=== PATIENT | male | born 1950 | race Caucasian/White ===

== ENCOUNTER → 2019-03-18 | Outpatient (CLI) | payer MEDICARE, OTHER ==
[2019-03-18 12:21] LABS: Appearance,Urine Clear (Clear); Bilirubin,Urine Negative (Negative); Blood,Urine Negative (Negative); Color,Urine Yellow; Glucose,Urine (UA) Negative (Negative); Ketones,Urine Negative (Negative); Leukocyte Esterase,Urine Negative (Negative); Nitrite,Urine Negative (Negative); Protein,Urine Trace (Negative); Specific Gravity,Urine 1.027 (1.001-1.035); Urobilinogen,Urine <2.0 mg/dL (<2.0)
[2019-03-18 12:23] LABS: HGB 16.2 gm/dL (13.0-17.5); MCH 32.8 pg (25.0-35.0); MCHC 33.8 g/dL (31.0-37.0); Mean Platelet Volume 6.3; Platelet Count 135 k/uL (150-450); RBC 4.95 m/uL (4.30-5.90); RDW 13.2 % (11.5-15.5); WBC 3.9 k/uL (3.8-10.6)
[2019-03-18 12:30] LABS: Potassium 4.6 mmol/L (3.5-5.1)
[2019-03-18 12:31] LABS: Albumin 4.5 g/dL (3.5-5.0); Calcium 9.8 mg/dL (8.4-10.2); Total Bilirubin 0.7 mg/dL (0.2-1.3); Total Protein 7.5 g/dL (6.3-8.2)
[2019-03-18 12:34] LABS: INR 1.2 (<1.2); Prothrombin Time 12.1 sec (9.0-12.0)
[2019-03-18 12:35] LABS: Partial Thromboplastin Time 31.6 sec (22.0-30.0)
== END | disposition home or self-care (01) ==
LOC: LABPAT 11:22
PROVIDERS: ATTEND Orthopaedic Surgery
DX: Z01.812 Encounter for preprocedural laboratory examination (principal); M16.11 Unilateral primary osteoarthritis, right hip; Z79.01 Long term (current) use of anticoagulants
CPT/HCPCS: 36415; 80053; 81003; 85027; 85610; 85730; 87070

== ENCOUNTER 2019-03-24 05:41 | Inpatient (IN) | payer MEDICARE, OTHER ==
[2019-03-20 11:42] VITALS: BMI 36.1
[~2019-03-24 05:41] MED LIST: ACETAMINOPHEN TAB 500 MG TAB PO ONE; GABAPENTIN 300 MG CAP PO ONE; MELOXICAM 7.5 MG TAB PO ONE; TRANEXAMIC ACID 1,000 MG in SODIUM CHLORIDE 0.9% 100 ML IVPB ONE; ceFAZolin 3 GM in SODIUM CHLORIDE 0.9% 100 ML IVPB ONE
[2019-03-24] MEDS ORDERED: LIDOCAINE 1% 20 ML VIAL (10MG/ML) FOR IV START INTRADERMA ONE (06:25)
[2019-03-24] MEDS ORDERED: ONDANSETRON 4 MG/2 ML VIAL IVP ONE (06:30)
[2019-03-24] MEDS ORDERED: DEXAMETHASONE SOD PHOSPHATE 10 MG/ML 1 ML VIAL IV ONE ×2 (06:30→07:16)
[2019-03-24] MEDS ORDERED: LACTATED RINGERS 1,000 ML IV ONE ×2 (06:31→07:59)
[2019-03-24] MEDS ORDERED: LACTATED RINGERS 1,000 ML BAG IV ONE (06:57)
[2019-03-24] MEDS ORDERED: fentaNYL (PF) 50 MCG/ML 2 ML AMP ONE (06:57)
[2019-03-24] MEDS ORDERED: MIDAZOLAM 2 MG/2 ML VIAL ONE (06:57)
[2019-03-24] MEDS ORDERED: SODIUM CHLORIDE 0.9% 100 ML BAG ONE (06:57)
[2019-03-24] MEDS ORDERED: TRANEXAMIC ACID 1,000 MG/10 ML VIAL ONE (06:57)
[2019-03-24] MEDS ORDERED: ceFAZolin 3,000 MG in SODIUM CHLORIDE 0.9% IRRIGATIO 3,000 ML IRRIGATION ONE (07:00)
[2019-03-24] MEDS ORDERED: ONDANSETRON 4 MG/2 ML VIAL IVP PRN (07:01)
[2019-03-24] MEDS ORDERED: DIAZEPAM 5 MG TAB PO PRN (07:01)
[2019-03-24] MEDS ORDERED: MAGNESIUM HYDROXIDE 2,400 MG/10 ML CUP PO PRN (07:01)
[2019-03-24] MEDS ORDERED: HYDROcodone/APAP 5-325MG 1 EACH TAB PO PRN (07:01)
[2019-03-24] MEDS ORDERED: HYDROmorphone 0.5 MG/0.5 ML SYRINGE IVP PRN ×4 (07:01→07:16)
[2019-03-24] MEDS ORDERED: NALOXONE 0.4 MG/ML 1 ML VIAL IV PRN (07:01)
[2019-03-24] MEDS ORDERED: hydrOXYzine PAMOATE 25 MG CAP PO PRN (07:01)
[2019-03-24] MEDS ORDERED: LIDOCAINE 1% 20 ML VIAL (10MG/ML) FOR IV START INTRADERMA PRN (07:16)
[2019-03-24] MEDS: ROPIVACAINE 246.25 MG, EPINEPHrine 0.5 MG, KETOROLAC 30 MG, cloNIDine HCL/PF 80 MCG, WA... MISCELLANE ONE ×10 (07:24→08:24)
--- NOTE | 2019-03-24 08:44 | P.OP ---
Date of Procedure: 03/24/19 Preoperative Diagnosis: Severe osteoarthritis right hip Postoperative Diagnosis: Severe osteoarthritis right hip Procedure(s) Performed: Right total hip arthroplasty with a direct anterior approach Implants: Wray [employer] nephew Polarstem size 1 standard [employer]hew R3, 3 hole acetabular shell, 56 mm [employer]hew reflection 6.5 mm cancellus screw, 20 mm 2 [employer] R3, XLPE 20 acetabular liner [employer]hew Oxinium femoral head 36 m, +4 All components were press-fit. The articulation is Oxinium on polyethylene. Anesthesia: spinal Surgeon: Agustín Gomes [employer] Sales Representative #1: Danielle Cristobal Estimated Blood Loss (ml): 120 (64 mL returned with Cell Saver) Pathology: other (Femoral head) Condition: stable Disposition: PACU Indications for Procedure: After failure of conservative treatment we discussed the surgical and nonsurgical treatment options at length. Patient wishes to proceed with a total hip arthroplasty with a direct anterior approach. Complications specific to this procedure were discussed at length, including but not limited to infection, leg length discrepancy, dislocation, and nerve injury. Patient is aware of all these complications and informed consent was obtained Operative Findings: The operative findings are consistent with severe osteoarthritis of the right hip Description of Procedure: Patient was seen and evaluated in the preoperative area, consent was reviewed, and the surgical site was marked with a skin marker. Patient was then brought to the operating room and given prophylactic antibiotics intravenously. 1 g of Tranexamic acid was also given. A spinal anesthetic was administered by the anesthesia department. The patient was then placed on the Suffern table with the bony prominences well-padded. The hip area was then prepped and draped in usual sterile fashion. A universal timeout was then performed, which confirmed the patient's name, surgical site, ALLERGIES, and procedure being performed. Next the incision site was located at 1 cm distal and 1 cm lateral to the anterior superior iliac spine. The skin and subcutaneous tissues were sharply incised. Incision was carefully dissected down to the fascia overlying the tensor fascia sony muscle. This fascia was then incised in line with the incision. Next, using blunt finger dissection, the tensor fascia sony muscle was dissected off its investing fascia. The muscle was then carefully retracted laterally with a cobra retractor over the lateral neck of the femur. Next, the circumflex vessels were identified and cauterized using the AquaMantis device. The anterior hip capsule was then exposed. The capsule was then opened and an inverted T fashion. Cobra retractors were then placed intracapsularly. The proximal femur was then visualized. The femoral neck was then osteotomized appropriate level above the lesser trochanter. Small amount of traction was placed with the Suffern table. A small wedge of bone was then removed from the remaining femoral head. Next, using a corkscrew femoral head was easily removed from the acetabulum. On gross visual inspection, the femoral head had complete loss of articular cartilage in mu ltiple periarticular osteophytes. Attention was then turned to the acetabulum. the acetabulum was exposed and any remaining labrum was excised. Sequential reaming of the acetabulum was performed using fluoroscopic guidance. When the appropriate size was reached, a trial was then placed. The position and fit of the trial was checked with fluoroscopy. The trial was then removed. Then, using fluoroscopic guidance, the final implant was impacted at 20 of anteversion and 40 of abduction, and fully seated in the acetabulum. 2 screws were then placed in the acetabulum. Again fluoroscopy was used to check position of the screws. Next, the liner was then impacted, with a 20 elevated liner located in the anterior superior quadrant. Component locking was confirmed. Attention was then directed to the femur. With the aid of the Suffern table, the femur was externally rotated to approximately 130, extended, and abducted under the opposite leg. A side hook was then placed under the proximal femur, and the side hook elevator was used to elevate the proximal femur. Retractors were then placed. A capsular release was performed, as well as a release of the conjoined tendon, which afforded excellent visualization of the proximal femur. Next, a box osteotome was used to lateralize the proximal femur. A shearing shed hand was then used to locate the femoral canal. Sequential broaching was then performed with appropriate size which afforded excellent fixation in the proximal femur. A trial was then placed with appropriate head and neck, and the hip was gently reduced with the aid of the Suffern table. Fluoroscopy was then used to check position of the components, as well as to ensure equal leg lengths. The hip was then gently dislocated and the trials were then removed. Final implants were then impacted and the hip was again reduced. Final fluoroscopic x-rays confirmed that the components were in anatomic position, as well as equal leg lengths. The hip was also taken through range of motion, and found to be stable. The hip was then copiously irrigated with antibiotic solution with pulsatile lavage. The hip was then irrigated with Irrisept solution. The soft tissues were then injected with a ropivacaine solution, which consisted of 246.25 mg of ropivacaine, 0.5 mg of epinephrine, 30 mg of Toradol, 80 g of clonidine, and 48.45 mL of sterile water, for a total of 100 mL of fluid injected. A second dose of 1 g of Tranexamic acid was also given. the fascia was then closed with 2-0 strata fix suture. The subcutaneous tissue was closed with 3-0 Vicryl. The subcuticular tissue was closed with 3-0 strata fix suture. The skin was then closed with Dermabond glue and a sterile silver dressing. The patient was then transferred to the recovery room in stable co ndition. The residential assistant SKYE Osborn was required due to the complexity of surgery, and the need for skilled nursing surgical services director for positioning, draping, exposure, retraction, and closure of the wound.
--- NOTE | 2019-03-24 09:21 | XR ---
Limited right hip HISTORY: Status post right hip arthroplasty Single frontal view of the right hip submitted. Patient is status post right hip arthroplasty. There is anatomic alignment. Subcutaneous emphysema is noted. Small ossific density lateral to the acetabulum is likely postoperative. IMPRESSION: Orthopedic follow-up.
--- NOTE | 2019-03-24 09:27 | FL ---
Fluoroscopy HISTORY: Anterior hip replacement 60 seconds fluoroscopy time supplied to the referring clinician. 3 intraoperative C-arm images docum ent the procedure. See dictated report from orthopedic surgery.
--- NOTE | 2019-03-24 09:29 | XR ---
Limited right hip HISTORY: Anterior hip replacement 3 intraoperative C-arm images document the procedure.
[2019-03-24] MEDS: LACTATED RINGERS 1,000 ML IV SCH (13:49)
[2019-03-24] MEDS: HYDROcodone/APAP 5-325MG 1 EACH TAB PO PRN (15:55)
--- NOTE | 2019-03-24 15:59 | P.CONS ---
History of Present Illness - Reason for Consult Preoperative outpatient management, history of PE - History of Present Illness Patient is a pleasant 68-year-old gentleman is admitted for total right arthroplasty direct anterior approach. Patient takes 20 mg of Xarelto, presently on 10 mg which will be switched to 20 mg patient had history of DVT twice in the past. Patient is high risk for another DVT. Patient denied any fever chills nausea vomiting patient had pass gas did not move his bowels. Pain is well controlled. Patient doesn't have full he catheter. Patient is clinically doing well Review of Systems REVIEW OF SYSTEMS: CONSTITUTIONAL: No fever, no malaise, no fatigue. HEENT: No recent visual problems or hearing problems. Denied any sore throat. CARDIOVASCULAR: No chest pain, orthopnea, PND, no palpitations, no syncope. PULMONARY: No shortness of breath, no cough, no hemoptysis. GASTROINTESTINAL: No diarrhea, no nausea, no vomiting, no abdominal pain. NEUROLOGICAL: No headaches, no weakness, no numbness. HEMATOLOGICAL: Denies any bleeding or petechiae. GENITOURINARY: Denies any burning micturition, frequency, or urgency. MUSCULOSKELETAL/RHEUMATOLOGICAL: Denies any joint pain, swelling, or any muscle pain. ENDOCRINE: Denies any polyuria or polydipsia. The rest of the 14-point review of systems is negative. Past Medical History Past Medical History: Blood Disorder, Cancer, Deep Vein Thrombosis (DVT), Osteoarthritis (OA), Prostate Disorder Additional Past Medical History / Comment(s): PROSTATE CA 2008, w/ surg; then radiation tx 2014. Factor V blood disorder, DVT x2. History of Any Multi-Drug Resistant Organisms: None Reported Past Surgical History: Appendectomy, Joint Replacement, Prostate Surgery Additional Past Surgical History / Comment(s): LT GREAT TOE. Total Lt Hip 2016. Past Anesthesia/Blood Transfusion Reactions: No Reported Reaction Past Psychological History: No Psychological Hx Reported Smoking Status: Never smoker Past Alcohol Use History: Occasional Past Drug Use History: None Reported - Past Family History Mother Family Medical History: Cancer Father Family Medical History: Deep Vein Thrombosis (DVT) Brother(s) Additional Family Medical History / Comment(s): "blood clots" - unsure where Medications and Allergies Home Medications Medication Instructions Recorded Confirmed Type Oxybutynin Chloride [Ditropan XL] 10 mg PO HS 03/26/17 03/24/19 History Rivaroxaban [Xarelto] 20 mg PO DAILY 03/20/19 03/24/19 History Allergies Allergy/AdvReac Type Severity Reaction Status Date / Time No Known Allergies Allergy Verified 03/24/19 06:06 Physical Exam Vitals: Vital Signs Temp Pulse Pulse Resp BP BP Pulse Ox 03/24/19 13:45 68 120/78 03/24/19 13:30 70 121/76 03/24/19 13:15 67 117/75 03/24/19 13:00 71 128/82 03/24/19 12:45 80 139/85 03/24/19 12:30 64 126/82 03/24/19 12:15 61 123/81 03/24/19 12:00 66 124/84 03/24/19 11:45 97.8 F 65 12 136/77 94 L 03/24/19 11:00 66 16 112/69 95 03/24/19 10:30 63 16 119/73 96 03/24/19 10:00 64 16 130/80 96 03/24/19 09:37 62 16 111/71 95 03/24/19 09:22 65 16 107/69 95 03/24/19 09:07 62 16 104/67 95 03/24/19 08:52 97.0 F L 69 14 106/72 93 L 03/24/19 06:09 97.3 F L 63 18 154/87 94 L Intake and Output 03/24/19 03/24/19 03/24/19 06:59 14:59 22:59 Intake Total 100 1501 Output Total 120 Balance 100 1381 Intake: IV 100 1501 Output: Estimated Blood Loss 120 Other: Weight 128 kg 128 kg PHYSICAL EXAMINATION: GENERAL: The patient is alert and oriented x3, not in any acute distress. Well developed, well nourished. HEENT: Pupils are round and equally reacting to light. EOMI. No scleral icterus. No conjunctival pallor. Normocephalic, atraumatic. No pharyngeal erythema. No thyromegaly. CARDIOVASCULAR: S1 and S2 present. No murmurs, rubs, or gallops. PULMONARY: Chest is clear to auscultation, no wheezing or crackles. ABDOMEN: Soft, nontender, nondistended, normoactive bowel sounds. No palpable organomegaly. MUSCULOSKELETAL: Deferred to orthopedic surgery EXTREMITIES: No cyanosis, clubbing, or pedal edema. NEUROLOGICAL: Gross neurological examination did not reveal any focal deficits. SKIN: No rashes. Assessment and Plan Plan: -Right hip arthroplasty diuretic effect anterior approach: Continue with present pain medications. Due to prophylaxis as mentioned above -History of DVT in the past because of which I'm increasing the dose of xarelto to his home dose Urinary incontinence for which patient is on oxybutynin which will continued
[2019-03-24] MEDS: SODIUM CHLORIDE 0.9% 1,000 ML IV SCH (16:05)
[2019-03-24 20:42] VITALS: RESP 16
[2019-03-24] MEDS ORDERED: SENNOSIDES-DOCUSATE SODIUM 1 EACH TAB PO SCH (21:00)
[2019-03-24] MEDS ORDERED: OXYBUTYNIN 10 MG TAB.ER.24 PO SCH (21:00)
[2019-03-25] MEDS: SODIUM CHLORIDE 0.9% 1,000 ML IV SCH (00:03)
[2019-03-25] MEDS: HYDROcodone/APAP 5-325MG 1 EACH TAB PO PRN ×3 (01:10→11:51)
[2019-03-25] MEDS: LACTATED RINGERS 1,000 ML IV SCH (03:04)
[2019-03-25 07:19] VITALS: BP 126/85; PULSE 61; TEMP 97.8
[2019-03-25 07:20] LABS: Basophils % (A) 0 %; Eosinophils # (A) 0.1 k/uL (0-0.7); Eosinophils % (A) 1 %; HCT 38.8 % (39.0-53.0); HGB 13.4 gm/dL (13.0-17.5); Lymphocytes # (A) 0.8 k/uL (1.0-4.8); Lymphocytes % (A) 10 %; MCH 33.3 pg (25.0-35.0); MCHC 34.6 g/dL (31.0-37.0); MCV 96.4 fL (80.0-100.0); Mean Platelet Volume 7.5; Monocytes # (A) 0.4 k/uL (0-1.0); Monocytes % (A) 5 %; Neutrophils # (A) 6.4 k/uL (1.3-7.7); Neutrophils % (A) 84 %; Platelet Count 120 k/uL (150-450); RBC 4.02 m/uL (4.30-5.90); RDW 13.2 % (11.5-15.5); WBC 7.6 k/uL (3.8-10.6)
--- NOTE | 2019-03-25 08:42 | P.DS ---
Providers Date of admission: 03/24/19 05:41 Expected date of discharge: 03/25/19 Attending physician: Agustín Gomes Consults: 03/24/19 07:01 Consult Physician Routine Consulting Provider: Benjamin Babin Consult Reason/Comments: medical management and anticoagulation. Factor V Leiden. Do you want consulting provider notified?: Yes Primary care physician: Keegan Naranjo - Discharge Diagnosis(es) (1) Osteoarthritis of right hip Current Visit: Yes Status: Acute (2) S/P total hip arthroplasty Current Visit: No Status: Acute Hospital Course: This is a 68-year-old male with known history of degenerative arthritis of the right hip. The patient presents for evaluation. After discussion and consideration patient elects to proceed with total hip arthroplasty. The patient is seen preoperatively by Dr. Gomes and medically cleared for surgery by their primary care physician. Patient is admitted to [facility] on 03/24/2019 for total hip arthroplasty. The procedures performed without complication or sequelae. The patient is doing well postoperatively. Labs and vital signs are stable on day of discharge. On day of discharge patient's hip incision is healing well. There is minimal erythema. There is no drainage noted at this time. There is minimal soft tissue swelling to the hip and thigh. Patient has full foot and ankle motion without difficulty or pain. Calf is soft and nontender to palpation. Neurovascular status to the right lower extremity is intact. Patient is discharged home in good condition. Opioid start talking form is reviewed and signed at patient bedside. Patient takes Xarelto routinely and has a prescription for this at home. Patient will continue Xarelto postoperatively for anticoagulation. Please see med rec for accurate list of home medications. Plan - Discharge Summary Discharge Rx Participant: Yes New Discharge Prescriptions: New HYDROcodone/APAP 5-325MG [Tempe 5-325] 1 - 2 tab PO Q6HR PRN #56 tab PRN Reason: Pain Sennosides [Senokot] 2 tab PO DAILY PRN #60 tablet PRN Reason: Constipation No Action Oxybutynin Chloride [Ditropan XL] 10 mg PO HS Rivaroxaban [Xarelto] 20 mg PO DAILY Discharge Medication List Oxybutynin Chloride [Ditropan XL] 10 mg PO HS 03/26/17 [History] Rivaroxaban [Xarelto] 20 mg PO DAILY 12/06/19 [History] HYDROcodone/APAP 5-325MG [[place]pe 5-325] 1 - 2 tab PO Q6HR PRN #56 tab 03/25/19 [Rx] Sennosides [Senokot] 2 tab PO DAILY PRN #60 tablet 03/25/19 [Rx] Follow up Appointment(s)/Referral(s): Agustín Gomes DO [Doctor of Osteopathic Medicine] - 2 Weeks Activity/Diet/Wound Care/Special Instructions: Weightbearing as tolerated with walker. Leave dressing intact. Dressing may be removed by home care nurse or by patient in 10 days. May shower with dressing on. Recommend use of compression stockings daily for at least 2 weeks during the day to help prevent swelling and blood clots. May remove at night before sleeping. Please follow-up with [facility] in 2 weeks and call with any questions or concerns, . Discharge Disposition: HOME WITH HOME HEALTH SERVICES
[2019-03-25] MEDS ORDERED: RIVAROXABAN 10 MG TAB PO SCH ×2 (09:00)
--- NOTE | 2019-03-25 12:28 | P.PN ---
Subjective No overnight events the pain is well-controlled patient did move his bowel. Patient is being discharged today. Constitutional: Denied any fatigue denied any fever. Cardio vascular: denied any chest pain, palpitations Gastrointestinal denied any nausea vomiting Pulmonary: Denied any shortness of breath cough Neurologic denied any new focal deficits All inpatient medications were reviewed and appropriate changes in these medications as dictated in the interval history and assessment and plan. Objective - Vital Signs Vital signs: Vital Signs Temp 97.8 F 03/25/19 07:00 Pulse 61 03/25/19 07:00 Resp 16 03/25/19 07:15 BP 126/85 03/25/19 07:00 Pulse Ox 96 03/25/19 07:00 Intake & Output 03/24/19 03/25/19 03/25/19 18:59 06:59 18:59 Intake Total 2251 210 260 Output Total 120 Balance 2131 210 260 Weight 128 kg Intake: IV 1501 Intake, IV Titration 400 210 Amount Sodium Chloride 0.9% 1, 350 210 000 ml @ 70 mls/hr IV . [id number] JUAN CARLOS Rx#:[id number] ceFAZolin 2 gm In Sodium 50 Chloride 0.9% 50 ml @ 100 mls/hr IVPB Q8HR JUAN CARLOS Rx# :[id number] Oral 350 260 Output: Estimated Blood Loss 120 Other: Voiding Method Toilet Toilet # Voids 2 1 - Exam PHYSICAL EXAMINATION: GENERAL: The patient is alert and oriented x3, not in any acute distress. Well developed, well nourished. HEENT: Pupils are round and equally reacting to light. EOMI. No scleral icterus. No conjunctival pallor. Normocephalic, atraumatic. No pharyngeal erythema. No thyromegaly. CARDIOVASCULAR: S1 and S2 present. No murmurs, rubs, or gallops. PULMONARY: Chest is clear to auscultation, no wheezing or crackles. ABDOMEN: Soft, nontender, nondistended, normoactive bowel sounds. No palpable organomegaly. MUSCULOSKELETAL: Deferred to orthopedic surgery EXTREMITIES: No cyanosis, clubbing, or pedal edema. NEUROLOGICAL: Gross neurological examination did not reveal any focal deficits. SKIN: No rashes. - Labs CBC & Chem 7: 03/25/19 06:46 Labs: Abnormal Lab Results - Last 24 Hours (Table) 12/11/19 Range/Units 06:46 RBC 4.02 L (4.30-5.90) m/uL Hct 38.8 L (39.0-53.0) % Plt Count 120 L (150-450) k/uL Lymphocytes # 0.8 L (1.0-4.8) k/uL Assessment and Plan Plan: -Right hip arthroplasty diuretic effect anterior approach: Continue with present pain medications. Patient will be discharged on anti-correlation as mentioned above. Patient can be discharged from medical perspective -History of DVT in the past because of which I'm increasing the dose of xarelto to his home dose Urinary incontinence for which patient is on oxybutynin which will continued
== END 2019-03-25 12:00 | disposition home health service (06) | DRG 470 ==
LOC: 2ORMAIN 05:41 → 4SSUR 11:04
PROVIDERS: ADMIT Orthopaedic Surgery; ATTEND Orthopaedic Surgery
PROC: 0SR906A Replacement of Right Hip Joint with Oxidized Zirconium on Polyethylene Synthetic Substitute, Uncemented, Open Approach (ICD-10-PCS; principal; 2019-03-24 07:00)
DX: M16.11 Unilateral primary osteoarthritis, right hip (principal); D68.51 Activated protein C resistance; Z79.01 Long term (current) use of anticoagulants; Z85.46 Personal history of malignant neoplasm of prostate; Z86.718 Personal history of other venous thrombosis and embolism; Z92.3 Personal history of irradiation; Z96.642 Presence of left artificial hip joint; Z80.9 Family history of malignant neoplasm, unspecified; Z83.2 Family history of diseases of the blood and blood-forming organs and certain disorders involving the immune mechanism; R32 Unspecified urinary incontinence; Z79.899 Other long term (current) drug therapy
CPT/HCPCS: 73501; 85025; 86850; 86891; 86900; 86901

== ENCOUNTER → 2019-10-19 | Outpatient (CLI) | payer MEDICARE, OTHER ==
[2019-10-19 08:32] LABS: Basophils % (A) 1 %; Eosinophils # (A) 0.2 k/uL (0-0.7); Eosinophils % (A) 3 %; HCT 45.7 % (39.0-53.0); HGB 15.1 gm/dL (13.0-17.5); Lymphocytes % (A) 22 %; MCH 31.6 pg (25.0-35.0); Mean Platelet Volume 7.5; Monocytes # (A) 0.3 k/uL (0-1.0); Monocytes % (A) 7 %; Neutrophils # (A) 2.9 k/uL (1.3-7.7); Neutrophils % (A) 65 %; Platelet Count 122 k/uL (150-450); RBC 4.76 m/uL (4.30-5.90); RDW 13.8 % (11.5-15.5); WBC 4.4 k/uL (3.8-10.6)
[2019-10-19 09:21] LABS: Erythrocyte Sedimentation Rate 8 mm/hr (0-15)
--- NOTE | 2019-10-19 09:45 | CT ---
EXAMINATION TYPE: CT hip RT wo con DATE OF EXAM: 10/19/2019 COMPARISON: Plain film 03/24/2019 HISTORY: Rt hip pain, post op CT DLP: 995.9 mGycm Automated exposure control for dose reduction was used. Helical imaging through the right hip. Three- dimensional reconstructions on an alternate workstation. FINDINGS: There are postop changes status post right hip arthroplasty. There is some streak artifact due to pat ient's hardware. Patient is also status post left hip arthroplasty. No dislocation. No evident fractu re. Question some lucency along the femoral component laterally and medially, correlate with more rec ent plain film. Calcific densities present at the origins of the hamstring musculature on the right. No evident hip joint effusion. There is marked degenerative disc change in the lower lumbar spine wit h spinal curvature. IMPRESSION: POSTPROCEDURAL CHANGES DESCRIBED. CORRELATE WITH MORE RECENT PLAIN FILM TO ASSESS FOR POTENTIAL PA RTICLE DISEASE. THERE IS MARKED DEGENERATIVE DISC DISEASE, SPINAL CURVATURE IN THE LOWER LUMBAR SPINE , CORRELATE FOR POSSIBLE REFERRED PAIN
== END | disposition home or self-care (01) ==
LOC: RADCTMAIN 07:07
PROVIDERS: ATTEND Orthopaedic Surgery
DX: Z47.1 Aftercare following joint replacement surgery (principal); Z96.641 Presence of right artificial hip joint; C61 Malignant neoplasm of prostate
CPT/HCPCS: 84153; 85025; 85652; 86140

== ENCOUNTER → 2021-02-02 | Outpatient (CLI) | payer MEDICARE, OTHER | END | disposition home or self-care (01) | LOC: LABWHC1 10:51 | PROVIDERS: ATTEND Orthopaedic Surgery | DX: T84.019A Broken internal joint prosthesis, unspecified site, initial encounter (principal); M79.651 Pain in right thigh; Z96.641 Presence of right artificial hip joint; Y79.2 Prosthetic and other implants, materials and accessory orthopedic devices associated with adverse incidents | CPT/HCPCS: 36415; 85379; 85652; 86140 ==

== ENCOUNTER → 2021-02-07 | Outpatient (CLI) | payer MEDICARE, OTHER ==
[2021-02-07 12:16] LABS: INR 1.3 (<1.2); Partial Thromboplastin Time 31.3 sec (22.0-30.0); Prothrombin Time 13.3 sec (9.0-12.0)
[2021-02-07 12:17] LABS: HCT 50.4 % (39.0-53.0); HGB 16.9 gm/dL (13.0-17.5); MCHC 33.5 g/dL (31.0-37.0); MCV 98.4 fL (80.0-100.0); Mean Platelet Volume 7.2; Platelet Count 129 k/uL (150-450); RBC 5.12 m/uL (4.30-5.90); WBC 6.7 k/uL (3.8-10.6)
[2021-02-07 12:18] LABS: Albumin 4.5 g/dL (3.5-5.0); Calcium 10.2 mg/dL (8.4-10.2); Potassium 4.6 mmol/L (3.5-5.1); Total Bilirubin 0.7 mg/dL (0.2-1.3); Total Protein 7.7 g/dL (6.3-8.2)
[2021-02-07 12:38] LABS: Appearance,Urine Clear (Clear); Bilirubin,Urine Negative (Negative); Blood,Urine Moderate (Negative); Color,Urine Yellow; Glucose,Urine (UA) Negative (Negative); Ketones,Urine Negative (Negative); Leukocyte Esterase,Urine Negative (Negative); Mucus,Urine Rare /hpf; Nitrite,Urine Negative (Negative); Protein,Urine Negative (Negative); RBC,Urine 10 /hpf (0-5); Specific Gravity,Urine 1.024 (1.001-1.035); Squamous Epithelial Cell,Urine <1 /hpf (0-4); Urobilinogen,Urine <2.0 mg/dL (<2.0); WBC,Urine <1 /hpf (0-5)
== END | disposition home or self-care (01) ==
LOC: LABPAT 10:07
PROVIDERS: ATTEND Orthopaedic Surgery
DX: Z01.818 Encounter for other preprocedural examination (principal); Z79.01 Long term (current) use of anticoagulants
CPT/HCPCS: 36415; 80053; 81001; 85027; 85610; 85730; 87070; 93005

== ENCOUNTER 2021-02-17 12:25 | Day surgery (SDC) | payer MEDICARE, OTHER ==
[~2021-02-17 12:25] MED LIST changes: -ACETAMINOPHEN TAB 500 MG TAB PO ONE; +ACETAMINOPHEN TAB 500 MG TAB PO PRN; +DEXAMETHASONE SOD PHOSPHATE 10 MG/ML 1 ML VIAL IV PRN; +DOCUSATE 100 MG CAP PO PRN; +FAMOTIDINE 20 MG/2 ML VIAL IVP PRN; -GABAPENTIN 300 MG CAP PO ONE; +KETOROLAC 15 MG/ML 1 ML VIAL IVP PRN; +LIDOCAINE 1% (10MG/ML) FOR IV START INTRADERMA PRN; -MELOXICAM 7.5 MG TAB PO ONE; +ONDANSETRON 4 MG/2 ML VIAL IVP PRN; -TRANEXAMIC ACID 1,000 MG in SODIUM CHLORIDE 0.9% 100 ML IVPB ONE; +TRANEXAMIC ACID 1,000 MG in SODIUM CHLORIDE 0.9% 100 ML IVPB PRN; +VANCOMYCIN 1,000 MG in SODIUM CHLORIDE 0.9% 250 ML IVPB PRN; -ceFAZolin 3 GM in SODIUM CHLORIDE 0.9% 100 ML IVPB ONE; +oxyCODONE ER 10 MG TAB.ER.12H PO PRN
[2021-02-17] MEDS: LACTATED RINGERS 1,000 ML IV SCH ×2 (13:03→23:46)
[2021-02-17] MEDS ORDERED: ROPIVACAINE/EPI/CLONIDINE/KET 50 ML SYRINGE MISCELLANE PRN (13:53)
[2021-02-17] MEDS ORDERED: TRANEXAMIC ACID 1,000 MG in SODIUM CHLORIDE 0.9% 100 ML IVPB ONE (13:54)
[2021-02-17] MEDS ORDERED: PROPOFOL 10 MG/ML 20 ML VIAL IV ONE (14:15)
[2021-02-17] MEDS ORDERED: GLYCOPYRROLATE 0.2 MG/ML 2 ML VIAL ONE (14:15)
[2021-02-17] MEDS ORDERED: HYDROmorphone (PF) 1 MG/ML ONE (14:15)
[2021-02-17] MEDS ORDERED: SODIUM CHLORIDE 0.9% 100 ML BAG ONE ×2 (14:15)
[2021-02-17] MEDS ORDERED: LIDOCAINE 1% INJ 10MG/ML (20 ML MDV) ONE (14:15)
[2021-02-17] MEDS ORDERED: MIDAZOLAM 2 MG/2 ML VIAL ONE (14:15)
[2021-02-17] MEDS ORDERED: ceFAZolin 1,000 MG VIAL ONE (14:15)
[2021-02-17] MEDS ORDERED: NEOSTIGMINE 1 MG/ML 10 ML VIAL ONE (14:15)
[2021-02-17] MEDS ORDERED: SUCCINYLCHOLINE CHLORIDE VIAL 200 MG/10 ML VIAL IV ONE (14:15)
[2021-02-17] MEDS ORDERED: ePHEDrine 50 MG/ML 1 ML AMP ONE (14:15)
[2021-02-17] MEDS ORDERED: fentaNYL (PF) 50 MCG/ML 2 ML AMP ONE (14:15)
[2021-02-17] MEDS ORDERED: TRANEXAMIC ACID 1,000 MG/10 ML VIAL ONE (14:15)
[2021-02-17] MEDS ORDERED: ROCURONIUM 10 MG/ML (5 ML VIAL) IV ONE (14:15)
[2021-02-17] MEDS ORDERED: LACTATED RINGERS 1,000 ML IV ONE ×2 (15:30→17:38)
[2021-02-17] MEDS ORDERED: HYDROmorphone 0.2 MG/1 ML SYRINGE IVP PRN ×2 (21:00)
[2021-02-17] MEDS ORDERED: HYDROmorphone 0.5 MG/0.5 ML SYRINGE IVP PRN (21:00)
[2021-02-17] MEDS ORDERED: ONDANSETRON 4 MG/2 ML VIAL IVP PRN (21:00)
[2021-02-17] MEDS ORDERED: hydrOXYzine pamoate 25 MG CAP PO PRN (21:00)
[2021-02-17] MEDS ORDERED: NALOXONE 0.4 MG/ML 1 ML VIAL IV PRN (21:00)
[2021-02-17] MEDS: HYDROmorphone 0.5 MG/0.5 ML SYRINGE IVP PRN ×2 (21:20→21:40)
--- NOTE | 2021-02-17 21:34 | P.OP ---
Date of Procedure: 02/17/21 Preoperative Diagnosis: 1. Failed right total hip arthroplasty, aseptic loosening and fractured femoral stem 2. History of DVT and factor V Leiden Postoperative Diagnosis: Same Procedure(s) Performed: 1. Right revision total hip arthroplasty, femoral component 2. Application of negative pressure wound VAC less than 50 cm, right hip Implants: 1. [employer] modular 16mm diameter, 155 mm length conical stem 2. [employer] modular 19+0 body 3. 36 mm Biolox delta head, +7.5 Anesthesia: GETA Surgeon: Troy Dyson Vendor Manager #1: Chaparrita Rivera Estimated Blood Loss (ml): 300 IV fluids (ml): 1,200 Urine output (ml): 500 Pathology: other (Deep tissue for cultures) Condition: stable Disposition: PACU Indications for Procedure: The patient is a very pleasant 70-year-old male with a medical history significant for factor V Leiden and bilateral DVT who had bilateral hip replacements by my partner Dr. Agustín Gomes. His left hip replacement went well, but unfortunately his right hip replacement loosened and he had progressively worsening pain started immediately after surgery. He was initially seen by my partner and when he was found to have a grossly loose and fractured some he was sent to me to discuss revision options. He had negative inflammatory markers and low index of suspicion for periprosthetic joint infection. I met with the patient and his to discuss treatment options. My recommendation was to revise his right femur through a direct anterior approach. We discussed the possibility of needing a separate incision for cortical window to remove the stem distally if well fixed. We had a long discussion on the potential risks and complications of revision surgery including but certainly not limited to risk of anesthesia, infection, dislocation, length discrepancy, aseptic loosening, periprosthetic fracture, periprosthetic joint infection, continued or worsened pain, DVT, PE, other medical complications, delayed wound healing, damage to blood vessels or nerves, generalized to satisfaction with surgery, and possibly loss of life or limb. The patient voiced his understanding these potential complications and also analogies the other less common competitions are possible. He also understands higher risk of complication due to this being a revision procedure. Operative Findings: No sign of infection and obvious loosening of the proximal portion of the stem area the distal portion of the stem was well fixed and required a separate cortical window to remove. Description of Procedure: The patient was identified in preoperative holding and the correct right leg was marked with my initials. I reviewed the consent form with the patient and all of his questions were answered. The patient was then brought back to the operating room. He was given a general anesthetic, preoperative antibiotics, and tranexamic acid on the gurney. The skin over the right hip was shaved. Boots were placed. Prior to placing his boots I felt his leg lengths and he felt 3-4 mm short. The patient was then carefully transferred onto the hand table. A perineal post was placed in his arms were positioned in the safe position. A timeout was performed identifying the correct patient, operative extremity, and procedure. At this point fluoroscopy was brought in to take preoperative images. The reference line was made to assess intraoperative changes in leg length and offset. The right leg was then prepped and draped in the standard sterile fashion. I began by outlining the prior scar from his previous direct anterior hip replacement. An incision was made longitudinally with a scalpel. Proximally the incision was curved along the outer table of the pelvis. Dissection was carried down carefully to the subcutaneous tissue and the fascia over the tensor muscle was identified and incised longitudinally in line with the skin incision. I then carefully developed the avascular plane between the tensor muscle belly laterally and the sartorius and rectus medially. The deep underlying fascia was incised and retractors were placed superiorly and inferiorly to the femoral neck. The anterior musculature was carefully elevated off of the hip capsule. The hip pseudocapsule was incised. A small amount of clear fluid was seen in the joint. The superior and inferior capsule were excised and tissue was sent for cultures. There was no sign of deep infection. The cup was circumferentially exposed and found to be stable. Gentle traction was applied to the [place] table and the femoral head was disengaged from the trunnion. The leg was then externally rotated and the traction was removed. The femoral head was removed from the acetabulum. I then began releasing the capsular attachments around the proximal femur. The leg was carefully dropped and I released the superolateral capsular remnants of the proximal femur. The femoral stem was found to be grossly loose. The proximal threaded attachment was placed and the femoral stem was easily removed. The distal portion of the stem remained. I then used a combination of methods including K wires around the stem, trephines, thin flexible osteotomes, but could not remove the stem from proximally. I then made a separate counterincision using fluoroscopy at the distal aspect of the stem. Skin incision was made with a scalpel and the vastus was elevated off the intermuscular septum down to the femur. Fluoroscopy was used to domenic out the level of the distal stem and a small cortical window was outlined with a pencil tip bur and removed with a saw using cold saline to prevent thermal necrosis of the femur. A [place] mile cable was placed just distal to the cortical window to prevent fracture propagation distally. The window of the femur was carefully removed with a curved osteotome and handed off to the back table to place in sterile saline. The stem was visualized distally and wor ked with a pencil tip bur. I was then able to dislodge the stem from distally using a bone tamp and a mallet. The cortical window was placed over the defect in the femur and a second [place] mile cable was placed. The distal wound was packed and attention was then turned proximally. The femur was once again exposed with retractors through the direct anterior approach. Flexible reamers were used and there was actually significant chatter with a 13 mm reamer Once the femur was adequately opened straight reamers were used and a 16 mm reamer had excellent chatter and purchase in the femur. It was brought down to a depth corresponding to a 155 mm distal stem. A 16 mm diameter by 150 mm distal stem was dispensed and gently tapped into place. A post was placed into the final stem and a reamer was used to prepare for the proximal body. A 19 mm 0 body was placed and we trialed several had options until leg length was restored and the hip was stable. The trial proximal body and head were removed. The final proximal body was placed taking care to match the patient's [place] version. We once again trialed different head options ultimately deciding to go with a +7.5 mm 36 head. The final hip was reduced. Soft tissue tension felt adequate. The hip had no evidence of subluxation with external rotation. Final fluoroscopic images were taken. The implant appeared to be in acceptable position and read axial restored our leg lengths. Both wounds were thoroughly irrigated. The proximal wound was soaked for 3 minutes with a dilute 0.35% Betadine soaked. Local anesthetic was infiltrated in the soft tissues. Bleeders were once again controlled bipolar sealant. 2 g of vancomycin powder was placed around the implant. A deep drain was placed. A multilayered closure with monofilament part stitches was performed and 2-0 nylon interrupted vertical mattress sutures were placed to reinforce the incision. The drain was hooked up to a canister. A sterile dressing was applied over the lateral incision from the cortical window. A Prevena wound VAC was placed over the anterior incision. All instrument, sponge and sharp counts were correct. The patient was then carefully transferred off of the [place] table onto the [facility]. His boots are removed and his leg lengths felt equal. The patient was then brought to recovery having tolerated the procedure well. Chaparrita Rivera PA-C was required as a skilled medical library assistant due to the complexity of the surgery. Plan: The patient is going to be admitted under my care. We will consult internal medicine and hematology given his history of DVT following his prior surgeries. We will resume his eliquis TOMORROW and get bilateral duplex ultrasounds. He will receive 2 doses of postoperative Ancef and I would like to treat him with chronic oral antibiotic suppression given this being a revision procedure. We will make him toe-touch weightbearing on the right leg due to the cortical window.
--- NOTE | 2021-02-17 22:48 | XR ---
EXAMINATION TYPE: XR Hip Limited RT DATE OF EXAM: 02/17/2021 COMPARISON: NONE HISTORY: Hip surgery TECHNIQUE: 10 views FINDINGS: 1 minute and 20 seconds of fluoroscopy time was recorded. There are multiple fluoroscopic i mages that show apparent revision of the right hip prosthesis. IMPRESSION: No complicating process seen.
[2021-02-17] MEDS: SENNOSIDES-DOCUSATE SODIUM 1 EACH TAB PO SCH (23:22)
[2021-02-17] MEDS: ceFAZolin 3 GM in SODIUM CHLORIDE 0.9% 100 ML IVPB SCH (23:44)
--- NOTE | 2021-02-18 | XR ---
EXAMINATION TYPE: XR femur RT DATE OF EXAM: 02/17/2021 COMPARISON: 03/24/2019 HISTORY: Postop hip surgery TECHNIQUE: 4 views FINDINGS: There is revision of the right hip prosthesis. Knee joint is intact. Hip joint is anatomic . There is a transverse fracture through the cortex of the proximal shaft of the femur. The prosthesi s has intramedullary courtney extending beyond the fracture 9 cm. IMPRESSION: There is revision of the right hip prosthesis. No complicating process seen.
[2021-02-18 03:37] LABS: Basophils % (A) 0 %; Eosinophils % (A) 0 %; HCT 42.3 % (39.0-53.0); HGB 14.2 gm/dL (13.0-17.5); Lymphocytes # (A) 0.7 k/uL (1.0-4.8); Lymphocytes % (A) 8 %; MCH 33.1 pg (25.0-35.0); MCHC 33.5 g/dL (31.0-37.0); MCV 98.8 fL (80.0-100.0); Mean Platelet Volume 7.3; Monocytes # (A) 0.5 k/uL (0-1.0); Monocytes % (A) 6 %; Neutrophils # (A) 7.9 k/uL (1.3-7.7); Neutrophils % (A) 86 %; Platelet Count 120 k/uL (150-450); RBC 4.28 m/uL (4.30-5.90); RDW 12.9 % (11.5-15.5); WBC 9.2 k/uL (3.8-10.6)
[2021-02-18] MEDS: HYDROcodone/APAP 5-325MG 1 EACH TAB PO PRN ×3 (05:55→19:55)
[2021-02-18] MEDS: ceFAZolin 3 GM in SODIUM CHLORIDE 0.9% 100 ML IVPB SCH (08:43)
--- NOTE | 2021-02-18 09:39 | FL ---
Fluoroscopy HISTORY: hip surgery 82 seconds fluoroscopy time supplied to the referring clinician. 9 intraoperative C-arm images docum ent the procedure. See dictated report from orthopedic surgery.
--- NOTE | 2021-02-18 10:17 | P.PN ---
Subjective Progress Note Date: 02/18/21 Patient is doing well this morning is sitting up at bedside. He has mild discomfort in the hip but is otherwise without complaints. He denies chest pain or shortness of breath. Objective - Vital Signs Vital signs: Vital Signs Temp 98.0 F 02/18/21 09:40 Pulse 75 02/18/21 09:40 Resp 18 02/18/21 09:40 BP 130/81 02/18/21 09:40 Pulse Ox 96 02/18/21 09:40 Intake & Output 02/17/21 02/18/21 02/18/21 18:59 06:59 18:59 Intake Total 2800 0 Output Total 600 410 100 Balance 2200 -410 -100 Weight 127.3 kg 127.3 kg Intake: IV 2800 0 Output: Drainage 70 100 Right Lower Hip 70 100 Urine 300 340 Estimated Blood Loss 300 Other: Voiding Method Indwelling Catheter Indwelling Catheter - Exam The patient is sitting at the bedside and is alert and oriented. A focused exam of the right leg was conducted. On inspection he has an incisional wound VAC in place with good seal. A Hemovac drain is in place. There is no drainage around either dressing. The thigh is soft and compressible. Distally his calf is soft and nontender. He is able to actively plantarflex and dorsiflex his ankle and toes. Sensation is intact globally throughout the right foot. The right foot is warm and well perfused with palpable pulses. - Labs CBC & Chem 7: 02/18/21 03:16 Labs: Abnormal Lab Results - Last 24 Hours (Table) 02/18/21 Range/Units 03:16 RBC 4.28 L (4.30-5.90) m/uL Plt Count 120 L (150-450) k/uL Neutrophils # 7.9 H (1.3-7.7) k/uL Lymphocytes # 0.7 L (1.0-4.8) k/uL Microbiology - Last 24 Hours (Table) 02/17/21 15:49 Anaerobic Culture - Preliminary Hip - Right 02/17/21 15:49 Tissue Culture - Preliminary Hip - Right Assessment and Plan Plan: Postoperative day #1 status post right revision total hip arthroplasty of a loose fractured stem to a reamed tapered modular stem and cables. History of bilateral DVT. 1. Toe-touch weightbearing right lower extremity 6 weeks 2. 2 doses postoperative Ancef followed by discharge on chronic oral antibiotic suppression for a septic revision. Low clinical suspicion of infection but we'll follow intraoperative cultures. 3. We'll resume DVT prophylaxis with Xarelto, we'll obtain bilateral lower extremity ultrasounds, and we'll consult Dr. Fritz for assistance in management of his bilateral DVT history 4. Discontinue Montesinos when able 5. Internal medicine for perioperative medical management 6. Physical therapy 7. Discharge planning and process
--- NOTE | 2021-02-18 11:14 | P.CONS ---
History of Present Illness - Reason for Consult Consult date: 02/18/21 History of DVTs - History of Present Illness Mr. Manning is a 70 year old male patient who was last seen in our office in 019, with Dr. negrete. At that time he was diagnosed with his second life long DVT which was determine unprovoked at the time and therefore anticoagulation lifelong was recommended. He now presents after undergoing a right hip replacement. Apparently his surgery was longer than anticipated. Xarelto was held 24 hours prior and day of, but resumed shortly after. A RLE Doppler revealed Right popliteal DVT. There is no mention of acute or chronic. He states he follows with Dr. Marino regarding this and Dr. Marino has performed the most recent ultrasound dopplers. To note this is the same leg as most recent thrombolic event. Review of Systems All systems: negative Constitutional: Reports as per HPI Past Medical History Past Medical History: Deep Vein Thrombosis (DVT), Osteoarthritis (OA), Prostate Disorder Additional Past Medical History / Comment(s): PROSTATE CANCER History of Any Multi-Drug Resistant Organisms: None Reported Past Surgical History: Appendectomy, Prostate Surgery Additional Past Surgical History / Comment(s): LEFT TOTAL HIP REPLACED. LEFT GREAT TOE ATHRITIS REMOVED. Past Anesthesia/Blood Transfusion Reactions: No Reported Reaction Past Psychological History: No Psychological Hx Reported Smoking Status: Never smoker Past Alcohol Use History: Occasional Past Drug Use History: None Reported - Past Family History Mother Family Medical History: Cancer Father Family Medical History: Deep Vein Thrombosis (DVT) Brother(s) Additional Family Medical History / Comment(s): "blood clots" - unsure where Medications and Allergies Home Medications Medication Instructions Recorded Confirmed Type Oxybutynin Chloride [Ditropan XL] 10 mg PO HS 03/26/17 02/17/21 History Rivaroxaban [Xarelto] 20 mg PO DAILY 03/20/19 02/17/21 History Allergies Allergy/AdvReac Type Severity Reaction Status Date / Time No Known Allergies Allergy Verified 02/17/21 13:02 Physical Exam Vitals: Vital Signs Temp Pulse Pulse Pulse Resp BP Pulse Ox 02/18/21 09:40 98.0 F 75 18 130/81 96 02/18/21 00:57 97.3 F L 64 15 122/83 96 02/18/21 00:20 60 118/74 02/18/21 00:05 70 126/75 02/17/21 23:50 77 134/85 02/17/21 23:35 60 116/73 02/17/21 23:20 60 122/70 02/17/21 23:05 58 L 118/75 02/17/21 22:50 61 115/72 02/17/21 22:35 61 129/75 02/17/21 22:20 74 15 123/76 97 02/17/21 21:50 76 16 133/80 96 02/17/21 21:35 75 16 154/84 100 02/17/21 21:20 70 16 137/75 97 02/17/21 21:09 97.0 F L 75 16 143/79 99 Intake and Output 02/17/21 02/18/21 02/18/21 22:59 06:59 14:59 Intake Total 1500 Output Total 340 370 100 Balance 1160 -370 -100 Intake: IV 1500 Output: Drainage 70 100 Right Lower Hip 70 100 Urine 340 300 Other: Voiding Method Indwelling Catheter Indwelling Catheter Weight 127.3 kg Alert and oriented NAD RLE edema and recent surgery HR: RRR Abdomen: S Non tender Lungs: CTA Calm Results CBC & Chem 7: 02/18/21 03:16 02/19/21 07:38 Labs: Abnormal Lab Results - Last 24 Hours (Table) 02/18/21 Range/Units 03:16 RBC 4.28 L (4.30-5.90) m/uL Plt Count 120 L (150-450) k/uL Neutrophils # 7.9 H (1.3-7.7) k/uL Lymphocytes # 0.7 L (1.0-4.8) k/uL Microbiology - Last 24 Hours (Table) 02/17/21 15:49 Gram Stain - Preliminary Hip - Right Tissue Culture - Preliminary 02/17/21 15:49 Anaerobic Culture - Preliminary Hip - Right Venous US: report reviewed Assessment and Plan (1) History of DVT (deep vein thrombosis) Current Visit: Yes Status: Acute Code(s): Z86.718 - PERSONAL HISTORY OF OTHER VENOUS THROMBOSIS AND EMBOLISM SNOMED Code(s): 377569383 (2) Primary osteoarthritis of left hip Current Visit: No Status: Acute Code(s): M16.12 - UNILATERAL PRIMARY OSTEOARTHRITIS, LEFT HIP SNOMED Code(s): 555462355070543 (3) S/P total hip arthroplasty Current Visit: No Status: Acute Code(s): Z96.649 - PRESENCE OF UNSPECIFIED ARTIFICIAL HIP JOINT SNOMED Code(s): 182737466918 Plan: RLE DVT: POpliteal - Since we do not have a comparison or mention of acute versus chronic it is difficult to provide definitive recommendations or determine if this would be considered failure of his DOAC - He did receive COVID booster 3 weeks prior - I have spoken to Dr. Marino who has agreed with continuation of xarelto at this time and he will compare images of his most recent doppler performed in his office to assist in determining the length of this DVT and if Xarelto should be continued - We will also check antiphospholipid antibodies. Thank you for allowing us to participate in the care of this patient
--- NOTE | 2021-02-18 11:36 | US ---
EXAMINATION TYPE: US venous doppler duplex LE BI DATE OF EXAM: 02/18/2021 11:11 AM COMPARISON: NONE CLINICAL HISTORY: history of bilateral DVT post op. Right leg pain following recent left hip prosthes is repair, history of bilateral DVT, patient on blood thinners Exam done portable SIDE PERFORMED: Bilateral TECHNIQUE: The lower extremity deep venous system is examined utilizing real time linear array sonog sagar with graded compression, doppler sonography and color-flow sonography. VESSELS IMAGED: Common Femoral Vein Deep Femoral Vein Greater Saphenous Vein * Femoral Vein Popliteal Vein Small Saphenous Vein * Proximal Calf Veins (* superficial vessels) Technically difficult study done with patient sitting in chair and unable to move right leg Right Leg: Positive for DVT popliteal vein with thready flow and partial compression, small dual rig ht femoral vein unable to visualize at distal and unable to fully compress at mid Left Leg: Appears negative for DVT IMPRESSION: 1. Positive right lower extremity DVT likely involving distal right femoral vein and popliteal vein. 2. No evidence of left lower extremity DVT. 1.
[2021-02-18] MEDS: RIVAROXABAN 20 MG TAB PO SCH (13:53)
[2021-02-18] MEDS ORDERED: RIVAROXABAN 20 MG TAB PO SCH (17:30)
[2021-02-18] MEDS: SENNOSIDES-DOCUSATE SODIUM 1 EACH TAB PO SCH (21:34)
[2021-02-18] MEDS: DOXYCYCLINE 100 MG CAP PO SCH (21:34)
--- NOTE | 2021-02-18 21:54 | P.CON ---
Consult Note - . Consult date: 02/18/21 Assessment/Plan:: Reason for consult-management of chronic medical conditions. Mr. Manning is a 70-year-old male with a past medical history of prostate disorder, osteoarthritis, DVT on Xarelto admitted for loose, fractured femoral stem, status post total hip arthroplasty done on 03/24/2019. Patient had right revision total hip arthroplasty with wound VAC placement on 02/17/2021. Today patient is postoperative day 1. Patient is currently lying in bed appears to be no acute distress. He complains of some discomfort in the right hip area. His family members and daughter at bedside. Patient denies having any active complaints except pain. He gerard having any chest pain or palpitations. No cough or difficulty breathing. No abdominal pain nausea vomiting or diarrhea. Patient mentions that he has history of DVT and takes Xarelto on a regular basis. This morning patient had a venous Doppler of bilateral lower extremities, right leg positive for DVT likely involving the distal right femoral vein and popliteal vein. Left lower extremity negative for DVT. Patient has been restarted on his home medications Xarelto 20 mg. REVIEW OF SYSTEMS: CONSTITUTIONAL: No fever, no malaise, no fatigue. HEENT: No recent visual problems or hearing problems. Denied any sore throat. CARDIOVASCULAR: No chest pain, orthopnea, PND, no palpitations, no syncope. PULMONARY: no hemoptysis. GASTROINTESTINAL: No diarrhea, no nausea, no vomiting, no abdominal pain. NEUROLOGICAL: No headaches, no weakness, no numbness. HEMATOLOGICAL: Denies any bleeding or petechiae. GENITOURINARY: Denies any burning micturition, frequency, or urgency. MUSCULOSKELETAL/RHEUMATOLOGICAL: As per HPI ENDOCRINE: Denies any polyuria or polydipsia. The rest of the 14-point review of systems is negative. Past Medical History Past Medical History: Deep Vein Thrombosis (DVT), Osteoarthritis (OA), Prostate Disorder Additional Past Medical History / Comment(s): PROSTATE CANCER History of Any Multi-Drug Resistant Organisms: None Reported Past Surgical History: Appendectomy, Prostate Surgery Additional Past Surgical History / Comment(s): LEFT TOTAL HIP REPLACED. LEFT GREAT TOE ATHRITIS REMOVED. Past Anesthesia/Blood Transfusion Reactions: No Reported Reaction Past Psychological History: No Psychological Hx Reported Smoking Status: Never smoker Past Alcohol Use History: Occasional Past Drug Use History: None Reported - Past Family History Mother Family Medical History: Cancer Father Family Medical History: Deep Vein Thrombosis (DVT) Brother(s) Additional Family Medical History / Comment(s): "blood clots" - unsure where Medications and Allergies Home Medications Medication Instructions Recorded Confirmed Type Oxybutynin Chloride [Ditropan XL] 10 mg PO HS 03/26/17 02/17/21 History Rivaroxaban [Xarelto] 20 mg PO DAILY 03/20/19 02/17/21 History Allergies Allergy/AdvReac Type Severity Reaction Status Date / Time No Known Allergies Allergy Verified 02/17/21 13:02 Physical Exam Vitals: Vital Signs Temp Pulse Pulse Pulse Resp BP Pulse Ox 02/18/21 14:29 98.0 F 72 18 114/68 92 L 02/18/21 09:40 98.0 F 75 18 130/81 96 02/18/21 00:57 97.3 F L 64 15 122/83 96 02/18/21 00:20 60 118/74 02/18/21 00:05 70 126/75 02/17/21 23:50 77 134/85 02/17/21 23:35 60 116/73 02/17/21 23:20 60 122/70 02/17/21 23:05 58 L 118/75 02/17/21 22:50 61 115/72 02/17/21 22:35 61 129/75 02/17/21 22:20 74 15 123/76 97 02/17/21 21:50 76 16 133/80 96 02/17/21 21:35 75 16 154/84 100 02/17/21 21:20 70 16 137/75 97 02/17/21 21:09 97.0 F L 75 16 143/79 99 Intake and Output 02/18/21 02/18/21 02/18/21 06:59 14:59 22:59 Output Total 370 100 Balance -370 -100 Output: Drainage 70 100 Right Lower Hip 70 100 Urine 300 Other: Voiding Method Indwelling Catheter PHYSICAL EXAMINATION: GENERAL: The patient is alert and oriented x3, not in any acute distress. HEENT: Pupils are round and equally reacting to light. EOMI. No scleral icterus. No conjunctival pallor. Normocephalic, atraumatic. No pharyngeal erythema. No thyromegaly. CARDIOVASCULAR: S1 and S2 present. No murmurs, rubs, or gallops. PULMONARY: Bilateral BS positive, no wheeze or crackles ABDOMEN: Soft, nontender, nondistended, normoactive bowel sounds. No palpable organomegaly. MUSCULOSKELETAL: No joint swelling or deformity. Right Hip - in dressing - looks clean and dry EXTREMITIES: No cyanosis, clubbing, or pedal edema. NEUROLOGICAL: Gross neurological examination did not reveal any focal deficits. SKIN: No rashes. Results CBC & Chem 7: 02/18/21 03:16 Labs: Abnormal Lab Results - Last 24 Hours (Table) 02/18/21 Range/Units 03:16 RBC 4.28 L (4.30-5.90) m/uL Plt Count 120 L (150-450) k/uL Neutrophils # 7.9 H (1.3-7.7) k/uL Lymphocytes # 0.7 L (1.0-4.8) k/uL Microbiology - Last 24 Hours (Table) 02/17/21 15:49 Gram Stain - Preliminary Hip - Right Tissue Culture - Preliminary 02/17/21 15:49 Anaerobic Culture - Preliminary Hip - Right ASSESSMENT Status post revision of right total hip arthroplasty postoperative day 1 History of DVT History of prostrate cancer PLAN: Patient has been restarted on Xarelto 20 mg, as a venous Doppler done this morning showed right DVT. Patient still has Montesinos's catheter in place, possible removal in the next 24 hours. Patient is encouraged to continue with incentive spirometry for pulmonary toilet. Continue with pain medication as per primary team management. We will continue to follow the patient. Thank you for the consultation.
[2021-02-19] MEDS: HYDROcodone/APAP 5-325MG 1 EACH TAB PO PRN ×4 (01:47→18:21)
[2021-02-19] MEDS: LACTATED RINGERS 1,000 ML IV SCH (07:13)
[2021-02-19] MEDS: RIVAROXABAN 20 MG TAB PO SCH (07:13)
[2021-02-19] MEDS: DOXYCYCLINE 100 MG CAP PO SCH ×2 (07:13→21:45)
--- NOTE | 2021-02-19 10:21 | P.PN ---
Subjective Progress Note Date: 02/19/21 This patient is a 70-year-old male who is status-post revision right total hip arthroplasty on 02/17/[address] Dyson. Today's postoperative day #2. Patient is seen and examined bedside. Patient is up to the bedside chair. He states his Montesinos catheter was removed this morning. He has not yet urinated. He has not had a bowel movement postoperatively. He is tolerating his diet well. He states his pain in the right hip is well- controlled on oral medication. He has been remaining toe-touch weightbearing on the operative extremity with a walker. He has no new complaints this morning and is doing well. He denies chest pain, shortness breath, nausea, vomiting, fevers, chills, numbness or tingling of the right lower extremity. Doppler ultrasound of the bilateral lower extremities yesterday revealed a DVT involving the right popliteal and femoral vein. Xarelto was restarted yesterday. Dr. Fritz has been consulted for further management. Hemovac drain was removed last evening. Objective - Vital Signs Vital signs: Vital Signs Temp 98.2 F 02/19/21 08:04 Pulse 68 02/19/21 08:04 Resp 18 02/19/21 08:04 BP 127/78 02/19/21 08:04 Pulse Ox 95 02/19/21 08:04 Intake & Output 02/18/21 02/19/21 02/19/21 19:59 06:59 18:59 Output Total 300 Balance -300 Output: Drainage Right Lower Hip Urine 300 Uretheral (Mot[place]inos) 300 Other: Voiding Method Indwelling Catheter # Bowel Movements - Exam On examination, patient is sitting at the bedside chair in no apparent distress. He is alert and oriented 3. On inspection of the right hip, there is a Prevena wound VAC and Optifoam dressing in place. No bleeding or drainage through dressings. There is mild swelling of the thigh. Thigh soft and compressible. Motor and sensory function is intact of the right lower extremity. Dorsalis pedis pulse is easily palpable, right lower extremity is warm and well-perfused with brisk capillary refill distally. The calves are soft and nontender. - Labs CBC & Chem 7: 02/18/21 03:16 Labs: Microbiology - Last 24 Hours (Table) 02/17/21 15:49 Gram Stain - Preliminary Hip - Right Tissue Culture - Preliminary Assessment and Plan Assessment: Status-post revision right total hip arthroplasty on 02/17/[address] Dyson. Post-operative day #2. Plan: - Toe-touch weightbearing on right lower extremity with a walker. Up with assistance. - Physical therapy to increase mobilization. - Pain management as needed. - Keep Optifoam dressing and incisional wound VAC in place. - Doxycycline 100 mg BID for chronic oral antibiotic suppression for revision. - Xarelto 20mg has been restarted. Doppler ultrasound bilateral lower extremities revealed DVT involving right popliteal and femoral vein. Dr. Fritz has been consulted for further evaluation and management. - Internal medicine consultation for abimael-operative medical management. - Discharge planning in process. Anticipate discharge home tomorrow with home health care, if medically cleared.
[2021-02-19 12:38] LABS: African American GFR (CKD) 87.4 (60.0-200.0); Anion Gap 11.5 mmol/L (4.00-12.00); BUN/Creat Ratio 24.1 Ratio (12.00-20.00); Blood Urea Nitrogen 24.1 mg/dL (9.0-27.0); Calcium 8.7 mg/dL (8.7-10.3); Carbon Dioxide 21.5 mmol/L (21.6-31.8); Non-African American GFR(CKD) 75.4 (60.0-200.0)
[2021-02-19] MEDS: DOCUSATE 100 MG CAP PO SCH ×2 (15:41→21:45)
--- NOTE | 2021-02-19 16:44 | P.PN ---
Subjective Progress Note Date: 02/19/21 Principal diagnosis: Mr. Manning is a 70-year-old male with a past medical history of prostate disorder, osteoarthritis, DVT on Xarelto admitted for loose, fractured femoral stem, status post total hip arthroplasty done on 03/24/2019. Patient had right revision total hip arthroplasty with wound VAC placement on 02/17/2021. Today patient is postoperative day 1. Patient is currently lying in bed appears to be no acute distress. He complains of some discomfort in the right hip area. His family members and daughter at bedside. Patient denies having any active complaints except pain. He gerard having any chest pain or palpitations. No cough or difficulty breathing. No abdominal pain nausea vomiting or diarrhea. Patient mentions that he has history of DVT and takes Xarelto on a regular basis. This morning patient had a venous Doppler of bilateral lower extremities, right leg positive for DVT likely involving the distal right femoral vein and popliteal vein. Left lower extremity negative for DVT. Patient has been restarted on his home medications Xarelto 20 mg. On 02/19/2021 - patient is seen and examined at the bedside. He is comfortably lying in bed appears to be no acute distress. He complains of some discomfort in the right hip area where he had the surgery. Patient denies having any cough chest pain palpitations or difficulty in breathing. He denies having any abdominal pain nausea vomiting or diarrhea. No fevers chills or rigors. Patient's Montesinos's catheter has been discontinued, he says he blood when the catheter was pulled out. He has some dry blood around his penile area. Patient's Hemovac drain has been removed yesterday evening. On reviewing the patient's vitals temperature 98.4, heart rate 64, respiratory rate 18, blood pressure 127/75, saturating at 92% on room air. Patient's labs have been revi ewed sodium and the number patient 4, chloride 104, bicarbonate 21, BUN 24, creatinine 1. Patient's medications have been reviewed Active Medications Hydrocodone Bitart/Acetaminophen (Hydrocodone/Apap 5-325mg 1 Each Tab) 1 each PO Q6HR PRN PRN Reason: Pain Scale 1 to 5 Stop: 03/19/21 21:01 Hydrocodone Bitart/Acetaminophen (Hydrocodone/Apap 5-325mg 1 Each Tab) 2 each PO Q6HR PRN PRN Reason: Pain Scale 6 to 10 Stop: 03/19/21 21:01 Last Admin: 02/19/21 13:03 Dose: 2 each Documented by: Docusate Sodium (Docusate 100 Mg Cap) 100 mg PO BID [facility] Last Admin: 02/19/21 15:41 Dose: 100 mg Documented by: Doxycycline Monohydrate (Doxycycline 100 Mg Cap) 100 mg PO BID [facility] Last Admin: 02/19/21 07:13 Dose: 100 mg Documented by: Hydromorphone HCl (Hydromorphone 0.2 Mg/1 Ml Syringe) 0.2 mg IVP Q3HR PRN PRN Reason: Pain Scale 4 to 6 Stop: 03/19/21 21:01 Hydromorphone HCl (Hydromorphone 0.2 Mg/1 Ml Syringe) 0.125 mg IVP Q3HR PRN PRN Reason: Pain Scale 1 to 3 Stop: 03/19/21 21:01 Hydromorphone HCl (Hydromorphone 0.5 Mg/0.5 Ml Syringe) 0.5 mg IVP Q3HR PRN PRN Reason: Pain Scale 7 to 10 Stop: 03/19/21 21:01 Hydroxyzine Pamoate (Hydroxyzine Pamoate 25 Mg Cap) 25 mg PO Q4HR PRN PRN Reason: Nausea, Anxiety, Pain Control Stop: 03/19/21 21:01 Lactated Ringer's (Lactated Ringers) 1,000 mls @ 20 mls/hr IV .Q24H [facility] Stop: 03/19/21 06:26 Last Admin: 02/19/21 07:13 Dose: 20 mls/hr Documented by: Lidocaine HCl (Lidocaine 1% (10mg/Ml) For Iv Start) 0.1 ml INTRADERMA PER PROTOCOL PRN PRN Reason: IV Start Stop: 03/19/21 06:26 Naloxone HCl (Naloxone 0.4 Mg/Ml 1 Ml Vial) 0.2 mg IV Q2M PRN PRN Reason: Opioid Reversal Stop: 03/19/21 21:01 Ondansetron HCl (Ondansetron 4 Mg/2 Ml Vial) 4 mg IVP DAILY PRN PRN Reason: Nausea And Vomiting Stop: 03/19/21 21:01 Rivaroxaban (Rivaroxaban 20 Mg Tab) 20 mg PO 0900 [facility]; Protocol Last Admin: 02/19/21 07:13 Dose: 20 mg Documented by: Senna/Docusate Sodium (Sennosides-Docusate Sodium 1 Each Tab) 2 each PO HS [facility] Stop: 03/19/21 21:01 Last Admin: 02/18/21 21:34 Dose: 2 each Documented by: Objective - Vital Signs Vital signs: Vital Signs Temp 98.4 F 02/19/21 14:45 Pulse 64 02/19/21 14:45 Resp 18 02/19/21 14:45 BP 127/75 02/19/21 14:45 Pulse Ox 92 L 02/19/21 14:45 Intake & Output 02/18/21 02/19/21 02/19/21 19:59 06:59 18:59 Output Total 300 Balance -300 Output: Drainage Right Lower Hip Urine 300 Uretheral (Montesinos) 300 Other: Voiding Method Indwelling Catheter # Bowel Movements - Exam PHYSICAL EXAMINATION: GENERAL: The patient is alert and oriented x3, not in any acute distress. HEENT: Pupils are round and equally reacting to light. EOMI. No scleral icterus. No conjunctival pallor. CARDIOVASCULAR: S1 and S2 present. No murmurs, rubs, or gallops. PULMONARY: Bilateral BS positive, no wheeze or crackles ABDOMEN: Soft, nontender, nondistended, normoactive bowel sounds. No palpable organomegaly. Dried blood around the penis. MUSCULOSKELETAL: No joint swelling or deformity. Right Hip - in dressing - looks clean and dry EXTREMITIES: No cyanosis, clubbing, or pedal edema. NEUROLOGICAL: Gross neurological examination did not reveal any focal deficits. SKIN: No rashes. - Labs CBC & Chem 7: 02/18/21 03:16 02/19/21 07:38 Labs: Abnormal Lab Results - Last 24 Hours (Table) 02/19/21 Range/Units 07:38 Carbon Dioxide 21.5 L (21.6-31.8) mmol/L BUN/Creatinine Ratio 24.10 H (12.00-20.00) Ratio Microbiology - Last 24 Hours (Table) 02/17/21 15:49 Gram Stain - Preliminary Hip - Right Tissue Culture - Preliminary Assessment and Plan Assessment: ASSESSMENT Status post revision of right total hip arthroplasty postoperative day 1 History of DVT History of prostrate cancer PLAN: Patient has been restarted on Xarelto 20 mg, a venous Doppler done showed right DVT. Dr. Cano from vascular surgery has been consulted regarding the persistent DVT. Patient is encouraged to continue with incentive spirometry for pulmonary toilet. Continue with pain medication as per primary team management. We will continue to follow the patient.
[2021-02-19] MEDS: SENNOSIDES-DOCUSATE SODIUM 1 EACH TAB PO SCH (21:45)
[2021-02-20] MEDS: HYDROcodone/APAP 5-325MG 1 EACH TAB PO PRN ×3 (00:08→16:13)
[2021-02-20 07:34] VITALS: PULSE 70
[2021-02-20] MEDS: DOCUSATE 100 MG CAP PO SCH (07:38)
[2021-02-20] MEDS: RIVAROXABAN 20 MG TAB PO SCH (07:39)
[2021-02-20] MEDS: DOXYCYCLINE 100 MG CAP PO SCH (07:39)
[2021-02-20] MEDS: LACTATED RINGERS 1,000 ML IV SCH (07:40)
--- NOTE | 2021-02-20 08:37 | P.GSCN ---
History of Present Illness History of present illness: 70-year-old gentleman, patient is known to me from the past patient has been coming to the office on regular basis for chronic DVT checkup he has history of DVT right and left leg and has has been on anticoagulation. Patient had a hip surgery done it was a long procedure and ultrasound showed DVT in the popliteal vein partially compressible and distal femoral not compressible. Patient seen in his room laying comfortably chest is clear abdomen is soft femorals are 1+ tenderness noted in the bilateral Plan is I will review the records from my office in the meantime patient on anticoagulation should be continued I will discuss with oncology after reviewing the films from my office follow with you thank you Past Medical History Past Medical History: Deep Vein Thrombosis (DVT), Osteoarthritis (OA), Prostate Disorder Additional Past Medical History / Comment(s): PROSTATE CANCER History of Any Multi-Drug Resistant Organisms: None Reported Past Surgical History: Appendectomy, Prostate Surgery Additional Past Surgical History / Comment(s): LEFT TOTAL HIP REPLACED. LEFT GREAT TOE ATHRITIS REMOVED. Past Anesthesia/Blood Transfusion Reactions: No Reported Reaction Past Psychological History: No Psychological Hx Reported Smoking Status: Never smoker Past Alcohol Use History: Occasional Past Drug Use History: None Reported - Past Family History Mother Family Medical History: Cancer Father Family Medical History: Deep Vein Thrombosis (DVT) Brother(s) Additional Family Medical History / Comment(s): "blood clots" - unsure where Medications and Allergies Home Medications Medication Instructions Recorded Confirmed Type Oxybutynin Chloride [Ditropan XL] 10 mg PO HS 03/26/17 02/17/21 History Rivaroxaban [Xarelto] 20 mg PO DAILY 03/20/19 02/17/21 History Allergies Allergy/AdvReac Type Severity Reaction Status Date / Time No Known Allergies Allergy Verified 02/17/21 13:02 Surgical - Exam Vital Signs Temp Pulse Resp BP Pulse Ox 97.0 F L 75 16 143/79 99 02/17/21 21:09 02/17/21 21:09 02/17/21 21:09 02/17/21 21:09 02/17/21 21:09 Results - Labs 02/18/21 03:16 02/19/21 07:38 Abnormal Lab Results - Last 24 Hours (Table) 02/19/21 Range/Units 07:38 Carbon Dioxide 21.5 L (21.6-31.8) mmol/L BUN/Creatinine Ratio 24.10 H (12.00-20.00) Ratio Microbiology - Last 24 Hours (Table) 02/17/21 15:49 Gram Stain - Preliminary Hip - Right Tissue Culture - Preliminary Diabetes panel 02/19/21 Range/Units 07:38 Sodium 137 (135-145) mmol/L Potassium 4.0 (3.5-5.5) mmol/L Chloride 104 (96-109) mmol/L Carbon Dioxide 21.5 L (21.6-31.8) mmol/L BUN 24.1 (9.0-27.0) mg/dL Creatinine 1.0 (0.6-1.5) mg/dL Glucose 106 (70-110) mg/dL Calcium 8.7 (8.7-10.3) mg/dL Calcium panel 02/19/21 Range/Units 07:38 Calcium 8.7 (8.7-10.3) mg/dL Pituitary panel 02/19/21 Range/Units 07:38 Sodium 137 (135-145) mmol/L Potassium 4.0 (3.5-5.5) mmol/L Chloride 104 (96-109) mmol/L Carbon Dioxide 21.5 L (21.6-31.8) mmol/L BUN 24.1 (9.0-27.0) mg/dL Creatinine 1.0 (0.6-1.5) mg/dL Glucose 106 (70-110) mg/dL Calcium 8.7 (8.7-10.3) mg/dL Adrenal panel 02/19/21 Range/Units 07:38 Sodium 137 (135-145) mmol/L Potassium 4.0 (3.5-5.5) mmol/L Chloride 104 (96-109) mmol/L Carbon Dioxide 21.5 L (21.6-31.8) mmol/L BUN 24.1 (9.0-27.0) mg/dL Creatinine 1.0 (0.6-1.5) mg/dL Glucose 106 (70-110) mg/dL Calcium 8.7 (8.7-10.3) mg/dL
[2021-02-20 09:30] LABS: Basophils # (A) 0.02 X 10*3/uL (0.00-0.10); Basophils % (A) 0.3 %; Eosinophils # (A) 0.13 X 10*3/uL (0.04-0.35); HGB 11.8 g/dL (13.0-17.0); Lymphocytes # (A) 0.86 X 10*3/uL (0.90-5.00); Lymphocytes % (A) 12.9 %; MCH 33.2 pg (27.0-32.0); MCHC 33.7 g/dL (32.0-37.0); MCV 98.6 fL (80.0-97.0); Mean Platelet Volume 9.7 fL (9.5-12.2); Monocytes # (A) 0.53 X 10*3/uL (0.20-1.00); Neutrophils # (A) 5.08 X 10*3/uL (1.80-7.70); Neutrophils % (A) 76.3 %; Platelet Count 106 X 10*3/uL (140-440); RBC 3.55 X 10*6/uL (4.40-5.60); RDW 13.2 % (11.5-14.5); WBC 6.65 X 10*3/uL (4.50-10.00)
--- NOTE | 2021-02-20 11:26 | P.PN ---
Subjective Progress Note Date: 02/20/21 Principal diagnosis: RLE DVT and status post Hip replacement I spoke with Dr. Cano today, he has reviewed his prior and most recent venous doppler. He confirms patient has a known chronic RLE popliteal DVT. Therefore continuing patient on Xarelto is resonable. Mr. Manning will follow-up with Dr. Cano in 1 week to confirm and compare with same in office, then plan for 4 weeks to repeat doppler and confirm no other changes. Objective - Vital Signs Vital signs: Vital Signs Temp 98.0 F 02/20/21 07:28 Pulse 70 02/20/21 07:28 Resp 16 02/20/21 07:28 BP 147/84 02/20/21 07:28 Pulse Ox 95 02/20/21 07:28 Intake & Output 02/19/21 02/20/21 02/20/21 18:59 06:59 18:59 Output Total 800 1150 Balance -800 -1150 Output: Urine 800 1150 Uretheral (Montesinos) 300 Other: Voiding Method Indwelling Catheter # Voids 2 # Bowel Movements 1 - Exam Alert and Oriented NAD Neck: Supple Lungs: CTA Abd: Soft Ext: RLE edema and evidence of right hip surgery Mood: Calm and cooperative - Labs CBC & Chem 7: 02/20/21 05:37 02/19/21 07:38 Labs: Abnormal Lab Results - Last 24 Hours (Table) 02/19/21 02/20/21 Range/Units 07:38 05:37 RBC 3.55 L (4.40-5.60) X 10*6/uL Hgb 11.8 L (13.0-17.0) g/dL Hct 35.0 L (39.6-50.0) % MCV 98.6 H (80.0-97.0) fL MCH 33.2 H (27.0-32.0) pg Plt Count 106 L (140-440) X 10*3/uL Lymphocytes # 0.86 L (0.90-5.00) X 10*3/uL Carbon Dioxide 21.5 L (21.6-31.8) mmol/L BUN/Creatinine Ratio 24.10 H (12.00-20.00) Ratio Microbiology - Last 24 Hours (Table) 02/17/21 15:49 Gram Stain - Preliminary Hip - Right Tissue Culture - Preliminary Assessment and Plan (1) History of DVT (deep vein thrombosis) Status: Acute Code(s): Z86.718 - PERSONAL HISTORY OF OTHER VENOUS THROMBOSIS AND EMBOLISM SNOMED Code(s): 045147294 (2) Primary osteoarthritis of left hip Status: Acute Code(s): M16.12 - UNILATERAL PRIMARY OSTEOARTHRITIS, LEFT HIP SNOMED Code(s): 962071012338903 (3) S/P total hip arthroplasty Status: Acute Code(s): Z96.649 - PRESENCE OF UNSPECIFIED ARTIFICIAL HIP JOINT SNOMED Code(s): 989866431261 Plan: RLE DVT: Popliteal - Since we do not have a comparison or mention of acute versus chronic it is difficult to provide definitive recommendations or determine if this would be considered failure of his DOAC - Dr. Cano had been asked to evaluate as patient follows outpatient SPoke to Dr. Cano who has personally reviewed his most recent Doppler images indicating chronic RLE DVT, therefore continuation of Xarelto on discharge is reasonable. - Plan to follow-up with Dr. Cano in 1 week to compare to prior to confirm if acute or chronic, then again in 4 weeks to repeat doppler. Ok for discharge from our perspective. Patient can be referred back to us if further anticoagulation management or changes in treatment after follow-up with Dr. Cano.
[2021-02-20 11:58] VITALS: RESP 18
--- NOTE | 2021-02-20 15:41 | P.DS ---
Providers Expected date of discharge: 02/20/21 Attending physician: Troy Dyson Consults: 02/17/21 21:00 Consult Physician Routine Consulting Provider: Benjamin Babin Consult Reason/Comments: medical management Do you want consulting provider notified?: Yes 02/18/21 10:09 Consult Physician Routine Consulting Provider: Milan Fritz Consult Reason/Comments: post-op, history of bilateral DVT Do you want consulting provider notified?: Yes 02/19/21 14:39 Consult Physician Routine Consulting Provider: Rebel Cano Consult Reason/Comments: RLE DVT. Has hx. Has seen pt in the past. Compare to last scans. Do you want consulting provider notified?: Yes Primary care physician: [facility] Course: This is a 70-year-old male who was last seen in our office with complaint of continued right hip pain following total right hip arthroplasty by Dr. Agustín Gomes in 2019. After discussion and consideration the patient elects to proceed with right revision total hip arthroplasty with Dr. Dyson. He is seen preoperatively by his PCP Kd Hook NP and cleared for surgery. The patient is admitted to [facility] for revision total right hip arthroplasty. The procedure is performed without complication or sequelae. The patient is doing well postoperatively. Vital signs and postoperative labs are stable on post-operative day #3. Patient has history of bilateral DVT, and post-operative bilateral Doppler ultrasounds were obtained and revealed a DVT involving the right popliteal and femoral veins. Dr. Fritz and Dr. Cano were consulted inpatient for further management. Per Dr. Cano and hematology, patient's RLE DVT has been determined to be chronic and it was recommended to continue patient on current Xarelto dose on discharge. Patient is seen and examined bedside this morning. He states the pain in his right hip is well controlled at this time. He has been working with physical therapy and has been remaining toe-touch weightbearing on the operative extremity. He is tolerating his diet well. He is urinating freely. He has not yet had a bowel movement although he denies abdominal pain, positive flatus. He is doing well and has passed physical therapy evaluation, including stairs. He is comfortable to return home with home health care today. He denies chest pain, shortness of breath, nausea, vomiting, fevers, chills, numbness or tinging of the right lower extremity. On examination, patient is sitting up in a bedside chair in no apparent distress. He is alert and orientated 3. Focused examination of the right hip was conducted. On inspection of the right hip, there is a with an incisional wound VAC and Optifoam dressing in place. No bleeding or drainage through the dressings. There is mild swelling of the thigh, the thigh is soft and compressible. Motor and sensory function is intact of the right lower extremity. Dorsalis pedis pulse is palpable, the right lower extremities warm and well perfused with brisk capillary refill distally. Calves are soft and nontender to palpation bilaterally. The patient is discharged to home with home health care today in good condition. Patient has been cleared by hematology, Dr. Cano, and internal medicine. Please see discharge orders. [facility] for accurate list of medications. Patient is instructed to follow-up with Dr. Cano in one week following discharge for further management of chronic RLE DVT. Patient should follow-up in the office with Dr. Dyson on Saturday02/24/21 for Prevena wound vac removal. . Plan - Discharge Summary Discharge Rx Participant: Yes New Discharge Prescriptions: New HYDROcodone/APAP 5-325MG [[place] 5-325] 1 - 2 tab PO Q6HR PRN 7 Days #40 tab PRN Reason: Pain Docusate [Colace] 100 mg PO BID #60 capsule Doxycycline Monohydrate 100 mg PO BID 30 Days #60 cap No Action Oxybutynin Chloride [Ditropan XL] 10 mg PO HS Rivaroxaban [Xarelto] 20 mg PO DAILY Discharge Medication List Oxybutynin Chloride [Ditropan XL] 10 mg PO HS 03/26/17 [History] Rivaroxaban [Xarelto] 20 mg PO DAILY 03/20/19 [History] Docusate [Colace] 100 mg PO BID #60 capsule 02/20/21 [Rx] Doxycycline Monohydrate 100 mg PO BID 30 Days #60 cap 02/20/21 [Rx] HYDROcodone/APAP 5-325MG [[place] 5-325] 1 - 2 tab PO Q6HR PRN 7 Days #40 tab 02/20/21 [Rx] Follow up Appointment(s)/Referral(s): [facility], [NON-STAFF] - ([facility] will call you to schedule your home physical therapy. ) Rebel Cano MD [STAFF PHYSICIAN] - 1 Week Troy Dyson MD [Medical Doctor] - 02/24/21 Patient Instructions/Handouts: Revision Total Joint Arthroplasty (DC) Activity/Diet/Wound Care/Special Instructions: Toe-touch weightbearing on operative extremity with a walker. Keep incisional wound VAC and dressing in place until follow-up appointment in the office. Take pain medications as prescribed. Continue doxycycline 100 mg BID as prescribed. Anticoagulation recommendations per hematology/vascular surgery. Follow-up in the office on Saturday02/24/[address] Dyson. Call the office with any questions or concerns, Discharge Disposition: HOME WITH HOME HEALTH SERVICES
[2021-02-20 15:50] VITALS: BP 131/75; TEMP 98.3
== END 2021-02-20 17:05 | disposition home health service (06) ==
LOC: OR 12:25 → 4SSUR 21:40 → OR 02-20 17:05
PROVIDERS: ATTEND Orthopaedic Surgery
DX: T84.89XA Other specified complication of internal orthopedic prosthetic devices, implants and grafts, initial encounter (principal); Y83.8 Other surgical procedures as the cause of abnormal reaction of the patient, or of later complication, without mention of misadventure at the time of the procedure; Z20.822 Contact with and (suspected) exposure to COVID-19; M19.90 Unspecified osteoarthritis, unspecified site; Z85.46 Personal history of malignant neoplasm of prostate; Z86.718 Personal history of other venous thrombosis and embolism; Z79.01 Long term (current) use of anticoagulants
CPT/HCPCS: 97116 ×2; 97161; 86900; 86901; 85025 ×2; 86850; 87070; 87205; 87075; 87635; 73501; 73552; 93970; 27134; 97608; J3370; J1100; J0690 ×2; J2405; J1885; J1170

== ENCOUNTER → 2024-08-20 | Outpatient (CLI) | payer MEDICARE | END | disposition home or self-care (01) | LOC: LABWHC1 09:46 | PROVIDERS: ATTEND Orthopaedic Surgery | DX: T84.84XA Pain due to internal orthopedic prosthetic devices, implants and grafts, initial encounter (principal); Z96.641 Presence of right artificial hip joint; Z47.1 Aftercare following joint replacement surgery | CPT/HCPCS: 36415; 85379; 85652; 86140 ==